=== PATIENT | male | born 1985 | race Caucasian/White ===

== ENCOUNTER → 2019-11-24 | Outpatient (CLI) | payer OTHER ==
[~2019-11-24] MED LIST: IBUP-1027 PO; IBUP100O25 PO
--- NOTE | 2019-11-24 11:46 | KCIC ---
CERVICAL SPINE WO CONTRAST History: Neck pain. Right shoulder pain. Bilateral upper extremity numbness and tingling. Technique: Multiplanar, multi sequential noncontrast MR imaging was performed of the cervical spine. Comparison: None Findings: Normal vertebral body height and alignment. No fracture. No pathologic signal abnormality within the cervical spinal cord. C2-C3: No canal or neuroforaminal narrowing. C3-C4: Disc height loss. No canal narrowing. Facet arthropathy. Bilateral uncovertebral hypertrophy. Mild left neural foraminal narrowing. C4-C5: Small disc bulge. No canal narrowing. Uncovertebral and facet arthropathy. Mild right neuroforaminal narrowing. No left neuroforaminal narrowing. C5-C6: Disc height loss. Small bulge. No canal narrowing. Uncovertebral and facet arthropathy. Mild to moderate right and minimal left neuroforaminal narrowing. C6-C7: No canal narrowing. Left uncovertebral hypertrophy. Mild left neuroforaminal narrowing. Facet arthropathy. No right neuroforaminal narrowing. C7-T1: No canal or neuroforaminal narrowing. Mild facet arthropathy. Impression: 1. Mild multilevel cervical spondylosis. 2. Multilevel neuroforaminal narrowing most prominent right C5-C6. Electronically signed by: Iraj Melendez DO (11/24/2019 11:43 AM) [facility]
--- NOTE | 2019-11-24 11:52 | KCIC ---
LUMBAR SPINE WO CONTRAST History: Low back pain. Bilateral lower extremity pain and numbness. Technique: Multiplanar, multi sequential MR imaging was performed of the lumbar spine. Comparison: None Findings: Normal vertebral body height and alignment. No fracture. Congenitally small spinal canal. Conus terminates at the normal location. No evidence of nerve root clumping. T11-T12: Small posterior disc bulge. Mild facet arthropathy. No canal narrowing. Mild bilateral neural foraminal narrowing. T12-L1: No canal or neuroforaminal narrowing. L1-L2: No canal or neuroforaminal narrowing. L2-L3: Broad-based disc bulge. Mild facet arthropathy. Minimal canal narrowing. Subarticular recess narrowing. No neuroforaminal narrowing. L3-L4: Small posterior disc bulge. Mild facet arthropathy. No canal narrowing. No neuroforaminal narrowing. L4-L5: Broad-based disc bulge with superimposed central disc protrusion. Bilateral subarticular recess narrowing with abutment of the descending L5 nerve roots. Minimal canal narrowing. Moderate facet arthropathy. No neuroforaminal narrowing. L5-S1: Disc bulge. Moderate facet arthropathy. No canal narrowing. Mild left neuroforaminal narrowing with possible abutment of the exiting left L5 nerve root. Impression: 1. Mild multilevel lumbar spondylosis most prominent L2-L3 and L4-L5. 2. L4-L5 subarticular recess narrowing with abutment of the descending L5 nerve roots. Correlate for radiculopathy. Electronically signed by: Iraj Melendez DO (11/24/2019 11:50 AM) [facility]
== END | disposition home or self-care (01) ==
LOC: KCIC MRI 09:12
PROVIDERS: ATTEND Neurological Surgery
DX: M47.812 Spondylosis without myelopathy or radiculopathy, cervical region (principal); M48.02 Spinal stenosis, cervical region; M50.221 Other cervical disc displacement at C4-C5 level; M47.816 Spondylosis without myelopathy or radiculopathy, lumbar region; M48.07 Spinal stenosis, lumbosacral region; M51.25 Other intervertebral disc displacement, thoracolumbar region; M12.88 Other specific arthropathies, not elsewhere classified, other specified site
CPT/HCPCS: 72141; 72148

== ENCOUNTER → 2020-06-27 | Outpatient (CLI) | payer OTHER ==
[~2020-06-27] MED LIST changes: +CITA20TA6 PO; +METH-38 PO; +OXYC1TAB15 PO; +SENN1TAB99 PO
[2020-06-27 13:40] LABS: BASO # 0.1 x10^3/uL (0.0-0.2); BASO % 1 % (0-3); EOS # 0.3 x10^3/uL (0.0-0.7); EOS % 3 % (0-3); HEMATOCRIT 41.7 % (39.0-53.0); HEMOGLOBIN 14.8 g/dL (13.0-17.5); LYMPH # 2.2 x10^3/uL (1.0-4.8); LYMPH % 21 % (24-48); MEAN CORPUSCULAR HEMOGLOBIN 33 pg (25-35); MEAN CORPUSCULAR HGB CONC 36 g/dL (31-37); MEAN CORPUSCULAR VOLUME 92 fL (79-100); MONO # 0.8 x10^3/uL (0.0-1.1); MONO % 8 % (0-9); NEUT # 7.3 x10^3/uL (1.8-7.7); NEUT % 68 % (31-73); PLATELET COUNT 256 x10^3/uL (140-400); RED BLOOD COUNT 4.53 x10^6/uL (4.30-5.70); WHITE BLOOD COUNT 10.7 x10^3/uL (4.0-11.0)
[2020-06-27 13:49] LABS: PROTHROMBIN TIME PATIENT 12.1 SEC (11.7-14.0)
[2020-06-27 14:13] LABS: ALBUMIN 4.1 g/dL (3.4-5.0); ALBUMIN/GLOBULIN RATIO 1.1 (1.0-1.7); CALCIUM 9.3 mg/dL (8.5-10.1); CREATININE 0.8 mg/dL (0.7-1.3); GFR 109.4; POTASSIUM 3.8 mmol/L (3.5-5.1); TOTAL BILIRUBIN 0.3 mg/dL (0.2-1.0); TOTAL PROTEIN 7.8 g/dL (6.4-8.2)
[2020-06-28 07:16] LABS: HEMOGLOBIN A1C 5.4 % (4.8-5.6)
== END | disposition home or self-care (01) ==
LOC: SURGPAT 12:49
PROVIDERS: ATTEND Neurological Surgery
DX: Z01.812 Encounter for preprocedural laboratory examination (principal); Z20.828 Contact with and (suspected) exposure to other viral communicable diseases; M51.06 Intervertebral disc disorders with myelopathy, lumbar region; M54.16 Radiculopathy, lumbar region
CPT/HCPCS: 80053; 83036; 85025; 85610; 85730; 87641; U0003

== ENCOUNTER → 2020-07-02 | Day surgery (SDC) | payer OTHER ==
[~2020-07-02] VITALS: Ht 175.3 cm; Wt 104.3 kg
[~2020-07-02] MED LIST changes: +BACITRACIN 50,000 UNIT in IV NORMAL SALINE 1000ML BAG 1,000 ML IRR ONE; +BUPIVACAINE MPF 0.5% 30 ML VIAL. ONE; +CLINDAMYCIN 900MG PREMIX 50 ML IV PRN; +DESFLURANE > 120 MINUTES IH ONE; +DEXAMETHASONE SOD PHOS 20 MG/5 ML VIAL. ONE; +DEXAMETHASONE SOD PHOS 4 MG/ML VIAL ONE; +GELATIN SPONGE SIZE 100. ONE; +HYDROmorphone 2 MG/ML VIAL IV PRN; +HYDROmorphone 2 MG/ML VIAL ONE; +IV RINGERS,LACTATED 1000ML 1,000 ML IV SCH; +LIDOCAINE 1% PF 2 ML VIAL. ID PRN; +LIDOCAINE 1%/EPI 1:100,000 20 ML VIAL. ONE; +LIDOCAINE 2% PF 5 ML VIAL. ONE; +MIDAZOLAM HCL/PF 2 MG/2 ML VIAL. ONE; +MORPHINE SULFATE 2 MG/ML VIAL. IV PRN; +ONDANSETRON PF 4 MG/2 ML VIAL. IV PRN; +PHENYLEPHRINE 10 MG/ML VIAL. ONE; +PROCHLORPERAZINE 10 MG/2 ML VIAL. IV PRN; +PROPOFOL 100 ML IV ONE; +PROPOFOL 50 ML IV ONE; +REMIFENTANIL 2 MG VIAL. IV ONE; +SUCCINYLCHOLINE 200 MG/10 ML VIAL. ONE; +THROMBIN TOPICAL 20,000 UNIT SPRAY.SYRN KIT TP ONE; +fentaNYL PF VIAL 100 MCG/2 ML VIAL IV PRN; +fentaNYL PF VIAL 100 MCG/2 ML VIAL ONE; +oxyCODONE/APAP 5/325 1 TAB TABLET PO ONE
--- NOTE | 2020-07-02 11:21 | PDOC ---
BRIEF OPERATIVE NOTE Date: Jul 02, 2020 Pre-Op Diagnosis lumbar disk herniation, lumbar radiculopathy Post-Op Diagnosis same Procedure Performed right L4-5 hemilaminotomy with discectomy Surgeon Ragini [employer] none Anesthesia Type: General Blood Loss 10mL Specimens Obtained disk and decompression Findings mass effect on neural elements from disk herniation, neuromonitoring improved on completion of decompression/discectomy Complications none apparent ROLO SAHA MD Jul 02, 2020 11:21
[2020-07-02 12:05] VITALS: BP 102/53
--- NOTE | 2020-07-02 12:29 | OP ---
DATE OF SURGERY: 07/02/2020 PREOPERATIVE DIAGNOSIS: Herniated disk at L4-L5 with lumbar radiculopathy. POSTOPERATIVE DIAGNOSIS: Herniated disk at L4-L5 with lumbar radiculopathy. SURGEON: Amrit Saha MD SHEEP STICKER: None. PROCEDURE: Right L4-L5 hemilaminotomy with diskectomy, intraoperative use of microscope and intraoperative neuro monitoring. ANESTHESIA: General. COMPLICATIONS: None. INDICATIONS FOR THE PROCEDURE: The patient is a pleasant 35-year-old gentleman with right greater than bilateral lower extremity pain localized to a disk herniation at L4-L5. He has been refractory to multiple nonsurgical treatments. Please refer to the patient's chart for additional details. DESCRIPTION OF PROCEDURE: After informed consent was obtained, the patient was brought into the operating room. He was placed under general anesthesia. Neuromonitoring was instituted and baseline potentials were obtained. The patient was turned prone on a Preet frame. All pressure points were checked and padded appropriately. Lumbar region was prepped and draped in the usual sterile fashion. Fluoroscopy was utilized to localize an appropriate incision location. A vertical incision centered over the region of L4-L5 was made with a 10 blade scalpel. Monopolar electrocautery was utilized to dissect the avascular midline to the spinous processes of L4-L5 and rightward across the lamina at this location. Level was again verified with fluoroscopy prior to the initiation of decompression. A right hemilaminotomy was performed at this location with a pneumatic drill as well as a Kerrison rongeur. The underlying ligament was gently removed with Kerrison rongeur. Neural elements were gently retracted medially and a bulging annulus was noted. Annulus was accessed with a #11 blade scalpel and disk material emerged under some pressure. Diskectomy was performed with pituitary rongeur as well as use of a nerve hook to gently tease additional disk material posterolaterally for removal. Upon completion of the diskectomy neural, monitoring potentials were noted to be improved compared to baseline. The wound was generously irrigated with antibiotic irrigation. Pristine hemostasis was achieved with FloSeal, cottonoids and some use of bipolar electrocautery. The muscle and fascia were then reapproximated with 0 Vicryl in a simple interrupted fashion. The subcutaneous tissues were reapproximated with 2-0 Vicryl in an interrupted inverted fashion and the skin was reapproximated with 4-0 Vicryl in a running subcuticular fashion. Mastisol and Steri-Strips were applied and the wound was dressed with Telfa and Tegaderm and 4 x 4, at the end of the procedure, all counts were correct. Neuro monitoring potentials were improved compared to baseline and the patient was subsequently extubated in the operating room and taken to recovery in stable condition. There were no intraprocedural complications apparent. Please note that the clindamycin was used as a prophylactic antibiotic prior to the initiation of the procedure. AMRIT SAHA MD DR: KIT/dawood JOB#: [id number] / [id number]
--- NOTE | 2020-07-04 10:08 | PATHOLOGY ---
[facility] Accession Number: [id number] . 01 Material submitted: . vertebral column - DISC AND DECOMPRESSION . 01 Clinical history: . DISC HERNIATION, LUMBAR RADICULOPATHY . 02 Diagnosis: Segments of fibrocartilaginous tissue and bone, L4-5 disc and decompression: - Degenerative changes of fibrocartilaginous tissue. ([facility] 07/03/2020) [facility] 07/03/2020 1531 Local . 02 Comment: There is no evidence of an acute inflammatory process or malignancy. ([facility] 07/03/2020) . 02 Electronically signed: . Raj Santiago MD, Pathologist NPI- [id number] . 01 Gross description: . The specimen is received in formalin, labeled "Christopher Miller, disc and decompression". The site is additionally labeled on the requisition as, "lumbar 4-5". Received is a moderate amount of pale tapia to pink-tapia gritty, fibrous tissue admixed with minute fragments of bone measuring 4.8 x 4.2 x 0.7 cm in aggregate dimensions. The specimen is submitted representatively in cassette A1, following light decalcification. ([facility]; 07/02/2020) [facility] 07/02/2020 1714 Local . 02 Pathologist provided ICD-10: M54.16 . 02 CPT . 202534, [id number] Specimen Comment: A courtesy copy of this report has been sent to [phone], [phone] Specimen Comment: [id number] Specimen Comment: Report sent to / DR LÓPEZ Performed at: [address], [place], [place] [id number] MD Michele Hernandez MD Phone: [phone] Performed at: [address] [id number] MD Raj Santiago MD Phone: [phone]
== END | disposition home or self-care (01) ==
LOC: SURG 06:50
PROVIDERS: ATTEND Neurological Surgery
DX: M51.16 Intervertebral disc disorders with radiculopathy, lumbar region (principal); Z88.0 Allergy status to penicillin; Z88.8 Allergy status to other drugs, medicaments and biological substances; Z79.899 Other long term (current) drug therapy; Z72.89 Other problems related to lifestyle
CPT/HCPCS: 36415; 63030; 86850; 86900; 86901; 88304; 88311; 97116; 97162; 97530; J0330; J1100; J1170; J2250; J2370; J2704; J3010; J3490; J7030; J7120; 76000